=== PATIENT | female | born 1980 | race Caucasian/White ===

== ENCOUNTER → 2016-07-31 | Outpatient (CLI) | payer MEDICARE, MEDICAID ==
--- NOTE | 2016-08-01 08:14 | RAD ---
EXAM DESCRIPTION: XR CHEST 2 VIEWS CLINICAL HISTORY: COPD COMPARISON: June 05, 2015 TECHNIQUE: PA/lateral FINDINGS: There is no cardiac or pulmonary abnormality. The lungs are clear. There is no effusion. IMPRESSION: No acute findings on today's study. Electronically signed by: Leonard Zelaya MD 08/01/2016 08:13
== END ==
LOC: YCFC.O 15:55
PROVIDERS: ATTEND Nurse Practitioner Family
DX: J44.9 Chronic obstructive pulmonary disease, unspecified (principal); F41.9 Anxiety disorder, unspecified

== ENCOUNTER → 2016-08-09 | Outpatient (CLI) | payer MEDICARE, MEDICAID | END | disposition home or self-care (01) | LOC: LAB.O 11:12 | PROVIDERS: ATTEND Nurse Practitioner Family | DX: E53.8 Deficiency of other specified B group vitamins (principal) ==

== ENCOUNTER → 2017-01-30 | Outpatient (CLI) | payer MEDICARE, MEDICAID ==
--- NOTE | 2017-01-30 14:06 | CT ---
EXAM DESCRIPTION: Abdomen/Pelvis w/wo Contrast CLINICAL HISTORY: 36 years,Female,PELVIC AND PERINEAL PAIN COMPARISON: None TECHNIQUE: Multiple axial tomographic images were obtained of the abdomen and pelvis with and without IV contrast without oral contrast. Then reconstructed in sagittal and coronal planes. This exam was performed using radiation doses that are As Low As Reasonably Achievable (ALARA). FINDINGS: The kidneys are unremarkable The adrenal glands are unremarkable. The spleen is unremarkable. The liver is unremarkable. The pancrease is unremarkable. The gallbladder demonstrates some mild increased density seen in the dependent portion. The included bowel is unremarkable. The appendix is unremarkable. There is no free air, free fluid, masses, or significant adenopathy. Surrounding soft tissues and bony elements unremarkable. The vaginal vault appears that the vaginal wall be thickened up to almost a centimeter. Patient's had a hysterectomy. I cannot tell if the ovaries are present in the pelvis due to the amount of fluid-filled small bowel in the pelvis. IMPRESSION: Possible thickening of the vaginal wall. Recommend evaluation. Densities seen within the gallbladder. Could represent sludge or small stones recommend ultrasound of the gallbladder. Electronically signed by: Thony Tapia MD 01/30/2017 2:04 PM CDT
--- NOTE | 2017-01-30 14:39 | US ---
EXAM DESCRIPTION: Pelvis Transvaginal CLINICAL HISTORY: 36 years, Female, PELVIS AND PERINEAL PAIN COMPARISON: January 30, 2017 FINDINGS: Transabdominal pelvic ultrasound. Irregular thick-walled fluid collection on the left measures 3.9 x 2.6 cm correlating well with CT. No abnormal finding is noted on the right. No free fluid is seen in the pelvis. Comparison with the CT scan shows that there probably is a small amount of free fluid in the pelvis and there is a right-sided cystic structure. This along with the vaginal wall thickening and a fluid and history of pain indicates likely pelvic inflammatory disease. IMPRESSION: 1. Findings most consistent with PID Electronically signed by: Jonah Villegas MD 01/30/2017 2:38 PM CDT
== END | disposition home or self-care (01) ==
LOC: CT 13:00
PROVIDERS: ATTEND Nurse Practitioner Family
DX: R10.2 Pelvic and perineal pain (principal)

== ENCOUNTER → 2018-12-26 | Outpatient (CLI) | payer MEDICARE, MEDICAID ==
--- NOTE | 2018-12-26 17:46 | RAD ---
EXAM DESCRIPTION: Chest,2 Views CLINICAL HISTORY: Tobacco dependence syndrome COMPARISON: Previous study July 31, 2016 TECHNIQUE: PA/lateral FINDINGS: Bilateral nipple jewelry is present. Heart size is normal with normal pulmonary vascularity. No pleural effusion or pneumothorax. Lungs are clear with no consolidating infiltrate. Lateral view shows intact sternum and T-spine. IMPRESSION: No acute process is identified in the chest. Electronically signed by: Rafael Weathers MD 12/26/2018 5:44 PM CDT
== END ==
LOC: RAD 15:36
PROVIDERS: ATTEND Internal Medicine Pulmonary Disease
DX: F17.290 Nicotine dependence, other tobacco product, uncomplicated (principal)

== ENCOUNTER → 2019-01-04 | Outpatient (CLI) | payer MEDICARE, MEDICAID | LOC: SL 19:18 | PROVIDERS: ATTEND Internal Medicine Pulmonary Disease | DX: G47.30 Sleep apnea, unspecified (principal) ==

== ENCOUNTER → 2019-08-27 | Outpatient (CLI) | payer MEDICARE, MEDICAID | LOC: SL 19:51 | PROVIDERS: ATTEND Internal Medicine Pulmonary Disease | DX: G47.30 Sleep apnea, unspecified (principal) ==